=== PATIENT | female | born 1950 | race Caucasian/White ===

== ENCOUNTER → 2016-04-11 | Outpatient (REF) | payer MEDICARE | PROVIDERS: ATTEND Nurse Practitioner Family | DX: E03.9 Hypothyroidism, unspecified (principal); E78.2 Mixed hyperlipidemia; I10 Essential (primary) hypertension ==

== ENCOUNTER → 2016-04-12 | Outpatient (REF) | payer MEDICARE ==
[2016-04-12 10:30] LABS: ALBUMIN 3.7 GM/DL (3.2-5.2); ALBUMIN/GLOBULIN RATIO 1.23 (1.00-1.93); BILIRUBIN,TOTAL 0.5 MG/DL (0.2-1.0); CALCIUM LEVEL 8.3 MG/DL (8.8-10.2); CREATININE FOR GFR 1.12 MG/DL (0.55-1.02); GLOMERULAR FILTRATION RATE 51.7 (>45); POTASSIUM SERUM 4.1 MEQ/L (3.5-5.1); TOTAL PROTEIN 6.7 GM/DL (6.4-8.2)
== END ==
PROVIDERS: ATTEND Nurse Practitioner Family
DX: E03.9 Hypothyroidism, unspecified (principal); E78.2 Mixed hyperlipidemia; I10 Essential (primary) hypertension

== ENCOUNTER → 2017-11-16 | Outpatient (REF) | payer MEDICARE ==
[2017-11-16 18:27] LABS: APPEARANCE, URINE HAZY (CLEAR); BACTERIA, URINE AUTO 1+ (NEGATIVE); BILIRUBIN, URINE AUTO NEGATIVE (NEGATIVE); BLOOD, URINE BLOOD NEGATIVE (NEGATIVE); COLOR, URINE YELLOW (YELLOW); GLUCOSE, URINE (UA) AUTO NEGATIVE (NEGATIVE); KETONE, URINE AUTO NEGATIVE (NEGATIVE); LEUKOCYTE ESTERASE, URINE AUTO 2+ (NEGATIVE); MUCUS, URINE SMALL (NEGATIVE); NITRITE, URINE AUTO NEGATIVE (NEGATIVE); PROTEIN, URINE AUTO NEGATIVE (NEGATIVE); RBC, URINE AUTO 1 /HPF (0-3); SPECIFIC GRAVITY URINE AUTO 1.016 (1.002-1.035); SQUAMOUS EPITHELIAL CELL UR AU 2 /HPF (0-6); WBC, URINE AUTO 28 /HPF (0-3)
== END ==
LOC: M LAB REF 16:57
DX: N39.0 Urinary tract infection, site not specified (principal)
CPT/HCPCS: 81001

== ENCOUNTER 2018-01-31 07:00 | Outpatient (REF) | payer MEDICARE, MEDICAID ==
[2018-01-31 09:20] LABS: HEMOGLOBIN 13.9 g/dl (12.0-15.5); MEAN CORPUSCULAR HGB CONC 31.6 g/dl (32.0-36.5); MEAN CORPUSCULAR VOLUME 88.7 fl (80.0-96.0); PLATELET COUNT, AUTOMATED 189 10^3/uL (150-450); RED BLOOD COUNT 4.96 10^6/uL (4.00-5.40); RED CELL DISTRIBUTION WIDTH 15.7 % (11.5-14.5)
[2018-01-31 10:02] LABS: ALBUMIN 3.7 GM/DL (3.2-5.2); ALBUMIN/GLOBULIN RATIO 1.16 (1.00-1.93); ALKALINE PHOSPHATASE 88 U/L (45-117); ALT/SGPT 35 U/L (12-78); ANION GAP 8 MEQ/L (8-16); AST/SGOT 25 U/L (7-37); BILIRUBIN,TOTAL 0.7 MG/DL (0.2-1.0); BLOOD UREA NITROGEN 14 MG/DL (7-18); CALCIUM LEVEL 9.1 MG/DL (8.8-10.2); CARBON DIOXIDE LEVEL 30 MEQ/L (21-32); CHLORIDE LEVEL 103 MEQ/L (98-107); CREATININE FOR GFR 1.04 MG/DL (0.55-1.30); GLOMERULAR FILTRATION RATE 55.9 (>45); GLUCOSE, FASTING 100 MG/DL (70-100); POTASSIUM SERUM 3.6 MEQ/L (3.5-5.1); SODIUM LEVEL 141 MEQ/L (136-145); TOTAL PROTEIN 6.9 GM/DL (6.4-8.2)
[2018-01-31 11:38] LABS: TOTAL 25(OH) VITAMIN D 19.4 NG/ML (30.0-100.0)
== END 2018-02-04 ==
LOC: SKLAB6 02-04 07:00
DX: E55.9 Vitamin D deficiency, unspecified (principal); D64.9 Anemia, unspecified; I10 Essential (primary) hypertension; Z79.899 Other long term (current) drug therapy
CPT/HCPCS: 80053

== ENCOUNTER → 2018-02-11 | Outpatient (REF) | payer MEDICARE, MEDICAID | LOC: SKLAB6 06:49 | DX: E03.9 Hypothyroidism, unspecified (principal) | CPT/HCPCS: 84443 ==

== ENCOUNTER → 2018-04-29 | Outpatient (REF) | payer MEDICARE ==
[2018-04-30 01:21] LABS: CREATININE, URINE 77.6 MG/DL; MALB URINE SIEMENS < 5.0 MG/L; MAU/CREAT RATIO 6.4 MCG/MG (0.0-30.0)
== END ==
LOC: SKLAB6 23:30
PROVIDERS: ATTEND Internal Medicine
DX: R39.89 Other symptoms and signs involving the genitourinary system (principal)

== ENCOUNTER → 2018-05-02 | Outpatient (REF) | payer MEDICARE ==
[2018-05-02 08:48] LABS: HEMOGLOBIN A1c 6.3 %
== END ==
LOC: SKLAB6 07:00
PROVIDERS: ATTEND Internal Medicine
DX: E11.9 Type 2 diabetes mellitus without complications (principal); Z79.899 Other long term (current) drug therapy

== ENCOUNTER → 2018-06-13 | Outpatient (REF) | payer MEDICARE ==
--- NOTE | 2018-06-13 14:22 | REP ---
LEFT HIP, TWO VIEWS: HISTORY: Hip pain. The patient is status post left total hip replacement. There is no acute fracture or dislocation. The bony structure is osteopenic. IMPRESSION: The patient is status post left total hip replacement. Electronically Signed by Abran Fields MD 06/13/2018 02:23 P
== END ==
LOC: SKLAB6 11:30
PROVIDERS: ATTEND Internal Medicine
DX: M25.552 Pain in left hip (principal)

== ENCOUNTER → 2018-07-25 | Outpatient (REF) | payer MEDICARE ==
[2018-07-25 08:33] LABS: HEMATOCRIT 41.9 % (36.0-47.0); HEMOGLOBIN 13.1 g/dl (12.0-15.5); MEAN CORPUSCULAR HEMOGLOBIN 26.8 pg (27.0-33.0); MEAN CORPUSCULAR HGB CONC 31.3 g/dl (32.0-36.5); MEAN CORPUSCULAR VOLUME 85.9 fl (80.0-96.0); PLATELET COUNT, AUTOMATED 255 10^3/uL (150-450); RED BLOOD COUNT 4.88 10^6/uL (4.00-5.40); WHITE BLOOD COUNT 5.8 10^3/uL (4.0-10.0)
[2018-07-25 09:59] LABS: ALBUMIN 3.3 GM/DL (3.2-5.2); BILIRUBIN,TOTAL 0.4 MG/DL (0.2-1.0); CALCIUM LEVEL 8.7 MG/DL (8.8-10.2); CREATININE FOR GFR 0.99 MG/DL (0.55-1.30); POTASSIUM SERUM 3.6 MEQ/L (3.5-5.1); THYROID STIMULATING HORMONE 3.54 uIU/ML (0.358-3.740); TOTAL PROTEIN 6.6 GM/DL (6.4-8.2)
== END ==
LOC: SKLAB6 07:00
PROVIDERS: ATTEND Internal Medicine
DX: E03.9 Hypothyroidism, unspecified (principal)

== ENCOUNTER → 2019-01-30 | Outpatient (REF) | payer MEDICARE ==
[2019-01-30 09:10] LABS: HEMATOCRIT 45.3 % (36.0-47.0); HEMOGLOBIN 14.4 g/dl (12.0-15.5); MEAN CORPUSCULAR HEMOGLOBIN 29.4 pg (27.0-33.0); MEAN CORPUSCULAR HGB CONC 31.8 g/dl (32.0-36.5); MEAN CORPUSCULAR VOLUME 92.6 fl (80.0-96.0); PLATELET COUNT, AUTOMATED 201 10^3/uL (150-450); RED BLOOD COUNT 4.89 10^6/uL (4.00-5.40); WHITE BLOOD COUNT 4.8 10^3/uL (4.0-10.0)
[2019-01-30 09:46] LABS: ALBUMIN 3.7 GM/DL (3.2-5.2); ALT/SGPT 19 U/L (12-78); BILIRUBIN,TOTAL 0.7 MG/DL (0.2-1.0); BLOOD UREA NITROGEN 12 MG/DL (7-18); CALCIUM LEVEL 9.4 MG/DL (8.8-10.2); CARBON DIOXIDE LEVEL 30 MEQ/L (21-32); CHLORIDE LEVEL 106 MEQ/L (98-107); CREATININE FOR GFR 0.92 MG/DL (0.55-1.30); GLOMERULAR FILTRATION RATE > 60.0 (>39); GLUCOSE, FASTING 109 MG/DL (70-100); POTASSIUM SERUM 3.1 MEQ/L (3.5-5.1); SODIUM LEVEL 142 MEQ/L (136-145); TOTAL PROTEIN 7.5 GM/DL (6.4-8.2)
== END ==
LOC: SKLAB6 07:00
PROVIDERS: ATTEND Internal Medicine
DX: Z79.899 Other long term (current) drug therapy (principal)

== ENCOUNTER → 2019-02-06 | Outpatient (REF) | payer MEDICARE ==
[2019-02-06 11:00] LABS: BLOOD UREA NITROGEN 13 MG/DL (7-18); CARBON DIOXIDE LEVEL 25 MEQ/L (21-32); CHLORIDE LEVEL 106 MEQ/L (98-107); CREATININE FOR GFR 0.86 MG/DL (0.55-1.30); GLOMERULAR FILTRATION RATE > 60.0 (>39); GLUCOSE, FASTING 107 MG/DL (70-100); POTASSIUM SERUM 3.6 MEQ/L (3.5-5.1); SODIUM LEVEL 141 MEQ/L (136-145)
== END ==
LOC: SKLAB6 07:00
PROVIDERS: ATTEND Internal Medicine
DX: Z79.899 Other long term (current) drug therapy (principal)

== ENCOUNTER → 2019-02-20 | Outpatient (REF) | payer MEDICARE ==
[2019-02-20 12:33] LABS: BLOOD UREA NITROGEN 12 MG/DL (7-18); CALCIUM LEVEL 9.1 MG/DL (8.8-10.2); CARBON DIOXIDE LEVEL 26 MEQ/L (21-32); CHLORIDE LEVEL 106 MEQ/L (98-107); CREATININE FOR GFR 0.83 MG/DL (0.55-1.30); GLOMERULAR FILTRATION RATE > 60.0 (>39); GLUCOSE, FASTING 102 MG/DL (70-100); POTASSIUM SERUM 3.8 MEQ/L (3.5-5.1); SODIUM LEVEL 140 MEQ/L (136-145)
== END ==
LOC: SKLAB6 13:00
PROVIDERS: ATTEND Internal Medicine
DX: I10 Essential (primary) hypertension (principal)

== ENCOUNTER → 2019-03-07 | Outpatient (REF) | payer MEDICARE | LOC: SKLAB6 07:00 | PROVIDERS: ATTEND Internal Medicine | DX: E03.9 Hypothyroidism, unspecified (principal) ==

== ENCOUNTER → 2019-04-30 | Outpatient (REF) | payer MEDICARE ==
[2019-04-30 12:58] LABS: HEMATOCRIT 42.8 % (36.0-47.0); HEMOGLOBIN 13.9 g/dl (12.0-15.5); MEAN CORPUSCULAR HEMOGLOBIN 29.8 pg (27.0-33.0); MEAN CORPUSCULAR HGB CONC 32.5 g/dl (32.0-36.5); MEAN CORPUSCULAR VOLUME 91.6 fl (80.0-96.0); PLATELET COUNT, AUTOMATED 184 10^3/uL (150-450); RED BLOOD COUNT 4.67 10^6/uL (4.00-5.40); WHITE BLOOD COUNT 5.2 10^3/uL (4.0-10.0)
[2019-04-30 13:14] LABS: BLOOD UREA NITROGEN 14 MG/DL (7-18); CALCIUM LEVEL 9.2 MG/DL (8.8-10.2); CARBON DIOXIDE LEVEL 31 MEQ/L (21-32); CHLORIDE LEVEL 105 MEQ/L (98-107); CREATININE FOR GFR 0.84 MG/DL (0.55-1.30); GLOMERULAR FILTRATION RATE > 60.0 (>39); GLUCOSE, FASTING 135 MG/DL (70-100); POTASSIUM SERUM 3.8 MEQ/L (3.5-5.1); SODIUM LEVEL 142 MEQ/L (136-145)
== END ==
LOC: SKLAB6 10:00
PROVIDERS: ATTEND Internal Medicine
DX: Z79.899 Other long term (current) drug therapy (principal)

== ENCOUNTER → 2019-05-18 | Outpatient (REF) | payer MEDICARE ==
--- NOTE | 2019-05-18 13:45 | REP ---
Right lower extremity Duplex Doppler venous ultrasound: Real time compression and duplex Doppler interrogation of the right lower extremity deep venous system is performed. The right common femoral, superficial femoral and popliteal veins are fully compressible with transducer pressure and demonstrate normal spontaneous and phasic flow, without evidence of deep venous thrombosis. Impression: No evidence of deep venous thrombosis of the right lower extremity femoral popliteal venous system. Electronically Signed by Ramone Luciano MD 05/18/2019 01:36 P
== END ==
LOC: EDSTATUS 08:21 → M RAD 12:15
PROVIDERS: ATTEND Internal Medicine
DX: R60.0 Localized edema (principal)

== ENCOUNTER → 2019-06-30 | Outpatient (REF) | payer MEDICARE | LOC: SKLAB6 12:28 | PROVIDERS: ATTEND Internal Medicine | DX: J06.9 Acute upper respiratory infection, unspecified (principal) ==

== ENCOUNTER → 2019-07-31 | Outpatient (REF) | payer MEDICARE ==
[2019-07-31 09:13] LABS: HEMATOCRIT 38.4 % (36.0-47.0); HEMOGLOBIN 12.4 g/dl (12.0-15.5); MEAN CORPUSCULAR HEMOGLOBIN 29.7 pg (27.0-33.0); MEAN CORPUSCULAR HGB CONC 32.3 g/dl (32.0-36.5); MEAN CORPUSCULAR VOLUME 92.1 fl (80.0-96.0); PLATELET COUNT, AUTOMATED 129 10^3/uL (150-450); RED BLOOD COUNT 4.17 10^6/uL (4.00-5.40); WHITE BLOOD COUNT 3.7 10^3/uL (4.0-10.0)
[2019-07-31 09:47] LABS: ALBUMIN 2.8 GM/DL (3.2-5.2); ALT/SGPT 19 U/L (12-78); BILIRUBIN,TOTAL 0.6 MG/DL (0.2-1.0); BLOOD UREA NITROGEN 13 MG/DL (7-18); CALCIUM LEVEL 8.7 MG/DL (8.8-10.2); CARBON DIOXIDE LEVEL 33 MEQ/L (21-32); CHLORIDE LEVEL 106 MEQ/L (98-107); CREATININE FOR GFR 0.76 MG/DL (0.55-1.30); GLOMERULAR FILTRATION RATE > 60.0 (>39); GLUCOSE, FASTING 80 MG/DL (70-100); POTASSIUM SERUM 3.3 MEQ/L (3.5-5.1); SODIUM LEVEL 143 MEQ/L (136-145); THYROID STIMULATING HORMONE 0.971 uIU/ML (0.358-3.740); TOTAL PROTEIN 6.3 GM/DL (6.4-8.2)
== END ==
LOC: SKLAB6 07:00
PROVIDERS: ATTEND Internal Medicine
DX: G30.9 Alzheimer's disease, unspecified (principal); D55.9 Anemia due to enzyme disorder, unspecified; I10 Essential (primary) hypertension; E03.9 Hypothyroidism, unspecified

== ENCOUNTER 2019-08-29 18:15 | Emergency (ER) | payer MEDICARE ==
[~2019-08-29] VITALS: Ht 167.6 cm; Wt 59.1 kg
--- NOTE | 2019-08-29 19:43 | REP ---
Single view chest: 08/29/2019. Indication: Chest pain. Fall. Comparison: 09/09/2015. Findings: The lungs are clear. There is no pleural effusion or pneumothorax. Cardiac silhouette is not enlarged. Tortuous aorta is noted. Significant degenerative sequelae are present involving the thoracic spine and right greater than left glenohumeral joints. Impression: Clear lungs. Electronically Signed by Wyatt Arellano DO 08/29/2019 07:34 P
--- NOTE | 2019-08-29 19:49 | REP ---
Five views left hip and single view pelvis: 08/29/2019. Indication: Left hip pain following injury. Comparison: 06/13/2018. Findings: The patient is status post bilateral total hip arthroplasties. The hardware appears intact. There is no evidence of acute fracture. Diffuse osteopenia is noted. Impression: No acute fracture detected. Electronically Signed by Wyatt Arellano DO 08/29/2019 07:41 P
--- NOTE | 2019-08-29 19:56 | REPVR ---
PROCEDURE INFORMATION: Exam: CT Head Without Contrast Exam date and time: 08/29/2019 7:26 PM Age: 69 years old Clinical indication: Injury or trauma; Fall; Initial encounter; Blunt trauma (contusions or hematomas) TECHNIQUE: Imaging protocol: Computed tomography of the head without contrast. Axial and coronal reformatted images were created and reviewed. Radiation optimization: All CT scans at this facility use at least one of these dose optimization techniques: automated exposure control; mA and/or kV adjustment per patient size (includes targeted exams where dose is matched to clinical indication); or iterative reconstruction. COMPARISON: No relevant prior studies available. FINDINGS: Brain: Patchy areas of hypoattenuation in the periventricular and subcortical white matter, consistent with chronic small vessel ischemic disease. No CT evidence of acute intracranial hemorrhage or acute territorial infarction. No significant mass effect or midline shift. Basal cisterns patent. Ventricles: Prominence of the cortical sulci, cisterns and ventricular system, consistent with cerebral and cerebellar volume loss. Bones/joints: No acute osseous abnormality. Sinuses: Minimal ethmoid mucosal thickening. Mastoid air cells: Grossly unremarkable. Vasculature: Calcific atherosclerotic disease in the cavernous internal carotid arteries. Soft tissues: Grossly unremarkable. IMPRESSION: 1. No CT evidence of acute intracranial pathology. 2. Additional findings, as above. Electronically signed by: Alexsander Patterson On 08/29/2019 19:55:30 PM
--- NOTE | 2019-08-29 20:03 | REPVR ---
PROCEDURE INFORMATION: Exam: CT Cervical Spine Without Contrast Exam date and time: 08/29/2019 7:26 PM Age: 69 years old Clinical indication: Injury or trauma; Fall; Initial encounter; Blunt trauma TECHNIQUE: Imaging protocol: Computed tomography images of the cervical spine without contrast. Axial, coronal and sagittal reformatted images were created and reviewed. Radiation optimization: All CT scans at this facility use at least one of these dose optimization techniques: automated exposure control; mA and/or kV adjustment per patient size (includes targeted exams where dose is matched to clinical indication); or iterative reconstruction. COMPARISON: No relevant prior studies available. FINDINGS: Vertebrae: Osteopenia. Straightening of the normal cervical lordosis. Mild anterolisthesis of C3 on C4, C4 on C5, C6 on C7 and C7 on T1. Mild retrolisthesis of C5 on C6. Alignment otherwise anatomic. Mild dextroscoliosis. No CT evidence of acute fracture, dislocation or subluxation. Vertebral body heights maintained. Discs/Spinal canal/Neural foramina: Mild multilevel degenerative changes, characterized by disc space narrowing, osteophytosis and uncovertebral and facet joint hypertrophy. Mild multilevel spinal canal and neural foraminal narrowing. Soft tissues: Grossly unremarkable. Lungs: Grossly unremarkable. IMPRESSION: 1. No CT evidence of acute cervical spine traumatic injury. 2. Additional findings, as above. Electronically signed by: Alexsander Patterson On 08/29/2019 20:03:13 PM
[2019-08-29 20:50] VITALS: BP 128/65
--- NOTE | 2019-08-30 10:21 | REP ---
Two views left ankle: 08/29/2019. Indication: Left ankle trauma and pain. Findings: There is no acute fracture, subluxation or dislocation. Alignment is normal. No lytic or blastic lesions are present. Impression: No acute osseous injury of the left ankle. Electronically Signed by Wyatt Arellano DO 08/30/2019 10:13 A
== END 2019-08-29 21:35 | disposition home or self-care (01) ==
LOC: M ED 18:15
DX: S72.102A Unspecified trochanteric fracture of left femur, initial encounter for closed fracture (principal); W01.0XXA Fall on same level from slipping, tripping and stumbling without subsequent striking against object, initial encounter; Y92.128 Other place in nursing home as the place of occurrence of the external cause; Y93.01 Activity, walking, marching and hiking; Y99.9 Unspecified external cause status; F03.90 Unspecified dementia, unspecified severity, without behavioral disturbance, psychotic disturbance, mood disturbance, and anxiety; I10 Essential (primary) hypertension; K21.9 Gastro-esophageal reflux disease without esophagitis; E03.9 Hypothyroidism, unspecified; G47.33 Obstructive sleep apnea (adult) (pediatric); Z96.642 Presence of left artificial hip joint

== ENCOUNTER → 2020-01-29 | Outpatient (REF) | payer MEDICARE ==
[2020-01-29 08:41] LABS: HEMATOCRIT 42.3 % (36.0-47.0); HEMOGLOBIN 13.6 g/dl (12.0-15.5); MEAN CORPUSCULAR HEMOGLOBIN 30.4 pg (27.0-33.0); MEAN CORPUSCULAR HGB CONC 32.2 g/dl (32.0-36.5); MEAN CORPUSCULAR VOLUME 94.4 fl (80.0-96.0); PLATELET COUNT, AUTOMATED 199 10^3/uL (150-450); RED BLOOD COUNT 4.48 10^6/uL (4.00-5.40); WHITE BLOOD COUNT 3.8 10^3/uL (4.0-10.0)
[2020-01-29 08:53] LABS: ALBUMIN 3.4 GM/DL (3.2-5.2); ALT/SGPT 22 U/L (12-78); BILIRUBIN,TOTAL 0.6 MG/DL (0.2-1.0); BLOOD UREA NITROGEN 17 MG/DL (7-18); CALCIUM LEVEL 8.9 MG/DL (8.8-10.2); CARBON DIOXIDE LEVEL 33 MEQ/L (21-32); CHLORIDE LEVEL 105 MEQ/L (98-107); CREATININE FOR GFR 0.71 MG/DL (0.55-1.30); GLOMERULAR FILTRATION RATE > 60.0 (>39); GLUCOSE, FASTING 74 MG/DL (70-100); POTASSIUM SERUM 3.7 MEQ/L (3.5-5.1); SODIUM LEVEL 142 MEQ/L (136-145); TOTAL PROTEIN 6.3 GM/DL (6.4-8.2)
== END ==
LOC: SKLAB6 07:00
PROVIDERS: ATTEND Internal Medicine
DX: E03.9 Hypothyroidism, unspecified (principal); I10 Essential (primary) hypertension; F03.90 Unspecified dementia, unspecified severity, without behavioral disturbance, psychotic disturbance, mood disturbance, and anxiety

== ENCOUNTER → 2020-02-04 | Outpatient (REF) | payer MEDICARE | LOC: SKLAB6 02-03 13:26 → EDSTATUS 03-11 12:53 | PROVIDERS: ATTEND Internal Medicine | DX: Z20.828 Contact with and (suspected) exposure to other viral communicable diseases (principal) ==

== ENCOUNTER → 2020-02-11 | Outpatient (REF) | payer MEDICARE | LOC: SKLAB6 08:00 | PROVIDERS: ATTEND Internal Medicine | DX: Z20.828 Contact with and (suspected) exposure to other viral communicable diseases (principal) ==

== ENCOUNTER → 2020-02-18 | Outpatient (REF) | payer MEDICARE ==
[2020-02-18 16:17] LABS: INFLUENZA A AMPLIFICATION NEGATIVE (NEGATIVE); INFLUENZA B AMPLIFICATION NEGATIVE (NEGATIVE)
== END ==
LOC: SKLAB6 08:00
PROVIDERS: ATTEND Internal Medicine
DX: Z20.828 Contact with and (suspected) exposure to other viral communicable diseases (principal)
CPT/HCPCS: 87502; U0003

== ENCOUNTER → 2020-02-25 | Outpatient (REF) | payer MEDICARE | LOC: SKLAB6 10:00 | PROVIDERS: ATTEND Internal Medicine | DX: Z20.828 Contact with and (suspected) exposure to other viral communicable diseases (principal) ==

== ENCOUNTER → 2020-03-03 | Outpatient (REF) | payer MEDICARE ==
[2020-03-03 11:37] LABS: INFLUENZA A AMPLIFICATION NEGATIVE (NEGATIVE); INFLUENZA B AMPLIFICATION NEGATIVE (NEGATIVE)
== END ==
LOC: SKLAB6 12:35
PROVIDERS: ATTEND Internal Medicine
DX: Z20.828 Contact with and (suspected) exposure to other viral communicable diseases (principal)
CPT/HCPCS: 87631; U0003

== ENCOUNTER → 2020-03-10 | Outpatient (REF) | payer MEDICARE | LOC: SKLAB6 09:00 | PROVIDERS: ATTEND Internal Medicine | DX: Z20.828 Contact with and (suspected) exposure to other viral communicable diseases (principal) ==

== ENCOUNTER → 2020-03-17 | Outpatient (REF) | payer MEDICARE | LOC: SKLAB6 10:00 | PROVIDERS: ATTEND Internal Medicine | DX: Z20.828 Contact with and (suspected) exposure to other viral communicable diseases (principal) ==

== ENCOUNTER → 2020-03-24 | Outpatient (REF) | payer MEDICARE | LOC: SKLAB6 10:00 | PROVIDERS: ATTEND Internal Medicine | DX: Z11.52 Encounter for screening for COVID-19 (principal) ==

== ENCOUNTER → 2020-03-31 | Outpatient (REF) | payer MEDICARE | LOC: SKLAB6 10:00 | PROVIDERS: ATTEND Internal Medicine | DX: Z20.822 Contact with and (suspected) exposure to COVID-19 (principal) ==

== ENCOUNTER → 2020-04-05 | Outpatient (REF) | payer MEDICARE ==
[2020-04-05 11:01] LABS: BLOOD UREA NITROGEN 16 MG/DL (7-18); CALCIUM LEVEL 9.4 MG/DL (8.8-10.2); CARBON DIOXIDE LEVEL 33 MEQ/L (21-32); CHLORIDE LEVEL 102 MEQ/L (98-107); CREATININE FOR GFR 0.83 MG/DL (0.55-1.30); GLOMERULAR FILTRATION RATE > 60.0 (>39); GLUCOSE, FASTING 73 MG/DL (70-100); POTASSIUM SERUM 2.9 MEQ/L (3.5-5.1); SODIUM LEVEL 140 MEQ/L (136-145)
== END ==
LOC: SKLAB6 09:00
PROVIDERS: ATTEND Internal Medicine
DX: R60.9 Edema, unspecified (principal)

== ENCOUNTER → 2020-04-06 | Outpatient (REF) | payer MEDICARE ==
[2020-04-06 10:48] LABS: POTASSIUM SERUM 4.2 MEQ/L (3.5-5.1)
== END ==
LOC: SKLAB6 07:00
PROVIDERS: ATTEND Internal Medicine
DX: E87.6 Hypokalemia (principal)

== ENCOUNTER → 2020-04-07 | Outpatient (REF) | payer MEDICARE | LOC: SKLAB6 09:00 | PROVIDERS: ATTEND Internal Medicine | DX: Z20.822 Contact with and (suspected) exposure to COVID-19 (principal) ==

== ENCOUNTER → 2020-04-14 | Outpatient (REF) | payer MEDICARE ==
[2020-04-14 13:17] LABS: INFLUENZA A AMPLIFICATION NEGATIVE (NEGATIVE); INFLUENZA B AMPLIFICATION NEGATIVE (NEGATIVE)
== END ==
LOC: SKLAB6 08:00
PROVIDERS: ATTEND Internal Medicine
DX: Z20.822 Contact with and (suspected) exposure to COVID-19 (principal)
CPT/HCPCS: 87502; U0003

== ENCOUNTER → 2020-04-21 | Outpatient (REF) | payer MEDICARE | LOC: SKLAB6 10:00 | PROVIDERS: ATTEND Internal Medicine | DX: Z20.822 Contact with and (suspected) exposure to COVID-19 (principal) ==

== ENCOUNTER → 2020-04-28 | Outpatient (REF) | payer MEDICARE | LOC: SKLAB6 09:00 | PROVIDERS: ATTEND Internal Medicine | DX: Z20.822 Contact with and (suspected) exposure to COVID-19 (principal) ==

== ENCOUNTER → 2020-05-05 | Outpatient (REF) | payer MEDICARE | LOC: SKLAB6 10:00 | PROVIDERS: ATTEND Internal Medicine | DX: Z11.52 Encounter for screening for COVID-19 (principal) ==

== ENCOUNTER → 2020-05-12 | Outpatient (REF) | payer MEDICARE | LOC: SKLAB6 10:00 | PROVIDERS: ATTEND Internal Medicine | DX: Z20.822 Contact with and (suspected) exposure to COVID-19 (principal) ==

== ENCOUNTER → 2020-05-26 | Outpatient (REF) | payer MEDICARE | LOC: SKLAB6 12:11 | PROVIDERS: ATTEND Internal Medicine | DX: Z20.822 Contact with and (suspected) exposure to COVID-19 (principal) ==

== ENCOUNTER → 2020-06-02 | Outpatient (REF) | payer MEDICARE | LOC: SKLAB6 09:00 | PROVIDERS: ATTEND Internal Medicine | DX: Z20.822 Contact with and (suspected) exposure to COVID-19 (principal) ==

== ENCOUNTER → 2020-06-18 | Outpatient (REF) | payer MEDICARE | LOC: SKLAB6 10:00 | PROVIDERS: ATTEND Internal Medicine | DX: Z20.822 Contact with and (suspected) exposure to COVID-19 (principal) ==

== ENCOUNTER → 2020-07-29 | Outpatient (REF) | payer MEDICARE ==
[2020-07-29 08:38] LABS: HEMATOCRIT 40.5 % (36.0-47.0); HEMOGLOBIN 13.1 g/dl (12.0-15.5); MEAN CORPUSCULAR HEMOGLOBIN 30.9 pg (27.0-33.0); MEAN CORPUSCULAR HGB CONC 32.3 g/dl (32.0-36.5); MEAN CORPUSCULAR VOLUME 95.5 fl (80.0-96.0); PLATELET COUNT, AUTOMATED 192 10^3/uL (150-450); RED BLOOD COUNT 4.24 10^6/uL (4.00-5.40); WHITE BLOOD COUNT 3.7 10^3/uL (4.0-10.0)
[2020-07-29 09:07] LABS: ALBUMIN 3.3 GM/DL (3.2-5.2); ALT/SGPT 19 U/L (12-78); BILIRUBIN,TOTAL 0.6 MG/DL (0.2-1.0); BLOOD UREA NITROGEN 23 MG/DL (7-18); CALCIUM LEVEL 8.7 MG/DL (8.8-10.2); CARBON DIOXIDE LEVEL 31 MEQ/L (21-32); CHLORIDE LEVEL 106 MEQ/L (98-107); CREATININE FOR GFR 0.73 MG/DL (0.55-1.30); GLOMERULAR FILTRATION RATE > 60.0 (>39); GLUCOSE, FASTING 71 MG/DL (70-100); POTASSIUM SERUM 3.8 MEQ/L (3.5-5.1); SODIUM LEVEL 140 MEQ/L (136-145); TOTAL PROTEIN 6.4 GM/DL (6.4-8.2)
== END ==
LOC: SKLAB6 07:00
PROVIDERS: ATTEND Internal Medicine
DX: E03.9 Hypothyroidism, unspecified (principal); I10 Essential (primary) hypertension; F03.90 Unspecified dementia, unspecified severity, without behavioral disturbance, psychotic disturbance, mood disturbance, and anxiety

== ENCOUNTER 2020-08-11 16:41 | Emergency (ER) | payer MEDICARE ==
[~2020-08-11] VITALS: Ht 175.3 cm; Wt 67.7 kg
[2020-08-11] MEDS ORDERED: MORPHINE 2 MG/ML 1ML VIAL (J2270) IV ONE ×2 (17:25→19:40)
[2020-08-11 17:39] LABS: BASO % 0.5 % (0.0-1.0); EOS # 0.1 10^3/uL (0.0-0.5); EOS % 1.2 % (0.0-3.0); HEMATOCRIT 39.5 % (36.0-47.0); LYMPH # 1.5 10^3/uL (1.5-5.0); LYMPH % 25.5 % (24.0-44.0); MEAN CORPUSCULAR HEMOGLOBIN 31.2 pg (27.0-33.0); MEAN CORPUSCULAR HGB CONC 32.9 g/dl (32.0-36.5); MEAN CORPUSCULAR VOLUME 94.7 fl (80.0-96.0); MONO # 0.4 10^3/uL (0.0-0.8); MONO % 6.9 % (2.0-8.0); NEUTROPHILS # 3.9 10^3/uL (1.5-8.5); NEUTROPHILS % 65.4 % (36.0-66.0); PLATELET COUNT, AUTOMATED 220 10^3/uL (150-450); RED BLOOD COUNT 4.17 10^6/uL (4.00-5.40)
[2020-08-11 18:08] LABS: ALBUMIN 3.4 GM/DL (3.2-5.2); ALT/SGPT 20 U/L (12-78); BILIRUBIN,TOTAL 0.4 MG/DL (0.2-1.0); BLOOD UREA NITROGEN 22 MG/DL (7-18); CALCIUM LEVEL 8.8 MG/DL (8.8-10.2); CARBON DIOXIDE LEVEL 30 MEQ/L (21-32); CHLORIDE LEVEL 104 MEQ/L (98-107); CREATININE FOR GFR 0.82 MG/DL (0.55-1.30); GLOMERULAR FILTRATION RATE > 60.0 (>39); GLUCOSE, FASTING 98 MG/DL (70-100); POTASSIUM SERUM 3.8 MEQ/L (3.5-5.1); SODIUM LEVEL 140 MEQ/L (136-145); TOTAL PROTEIN 6.5 GM/DL (6.4-8.2)
--- NOTE | 2020-08-11 18:14 | REP ---
INDICATION: fall; pre-op. COMPARISON: Comparison chest x-ray August 29, 2019.. TECHNIQUE: Portable supine AP chest x-ray peer FINDINGS: Patient is rotated to the right for the current exposure and the mandible overlies the lung apices particularly on the right. There is a large air and fluid containing hiatal hernia overlying the heart. No infiltrate is seen. The pleural angles are sharp. No infiltrate is seen. The thoracic aorta is somewhat tortuous. No acute bony abnormality. IMPRESSION: Large hiatal hernia. No infiltrate or other acute finding. <Electronically signed by Carl Quiroz > 08/11/20 [id number]
[2020-08-11 18:29] LABS: RSV AMPLIFICATION NEGATIVE (NEGATIVE)
[2020-08-11] MEDS ORDERED: MILKSUS3 PO (19:10)
[2020-08-11] MEDS ORDERED: NUED20CA PO (19:10)
[2020-08-11] MEDS ORDERED: DULC10SU2 PR (19:10)
[2020-08-11] MEDS ORDERED: ZONI25CA13 PO (19:10)
[2020-08-11] MEDS ORDERED: LEXA1TAB2 PO (19:10)
[2020-08-11] MEDS ORDERED: MIRA3350 PO (19:10)
[2020-08-11] MEDS ORDERED: AYR0.65S NARES (19:10)
[2020-08-11] MEDS ORDERED: HYDR12CA PO (19:10)
[2020-08-11] MEDS ORDERED: ACET1TAB55 PO ×2 (19:10)
[2020-08-11] MEDS ORDERED: LORA-674 PO (19:10)
[2020-08-11] MEDS ORDERED: LEVO75TA34 PO (19:10)
[2020-08-11] MEDS ORDERED: ENSU1LIQ36 PO (19:10)
[2020-08-11] MEDS ORDERED: POTA1TAB14 PO (19:10)
[2020-08-11] MEDS ORDERED: NS 1,000 ML IV SCH (20:25)
[2020-08-11 22:00] VITALS: BP 141/87
== END 2020-08-11 22:31 | disposition short-term general hospital (02) ==
LOC: M ED 16:41
DX: S72.401A Unspecified fracture of lower end of right femur, initial encounter for closed fracture (principal); W19.XXXA Unspecified fall, initial encounter; Y92.129 Unspecified place in nursing home as the place of occurrence of the external cause; Y93.89 Activity, other specified; Y99.9 Unspecified external cause status; M19.011 Primary osteoarthritis, right shoulder; M85.88 Other specified disorders of bone density and structure, other site; E03.9 Hypothyroidism, unspecified; F03.90 Unspecified dementia, unspecified severity, without behavioral disturbance, psychotic disturbance, mood disturbance, and anxiety; Z79.890 Hormone replacement therapy; Z79.899 Other long term (current) drug therapy
CPT/HCPCS: 29505; 71045; 73030; 73502; 73564; 80053; 85025; 87631; 96374; 96375; 99285; J2270

== ENCOUNTER → 2020-08-11 | Outpatient (CLI) | payer MEDICARE ==
[~2020-08-11] MED LIST: ACET1TAB55 PO; AYR0.65S NARES; DULC10SU2 PR; ENSU1LIQ36 PO; HYDR12CA PO; LEVO75TA34 PO; LEXA1TAB2 PO; LORA-674 PO; MILKSUS3 PO; MIRA3350 PO; NUED20CA PO; POTA1TAB14 PO; ZONI25CA13 PO
--- NOTE | 2020-08-11 16:41 | REP ---
INDICATION: HIP, KNEE, AND SHOULDER PAIN COMPARISON: None. TECHNIQUE: Internal and external rotation views of the right shoulder. FINDINGS: Advanced osteopenia and degenerative changes are appreciated. No evidence for acute fracture or dislocation. IMPRESSION: Advanced osteoarthritic degenerative changes. No acute fracture or dislocation identified. <Electronically signed by Adolfo Cornell > 08/11/20 [id number]
--- NOTE | 2020-08-11 16:42 | REP ---
INDICATION: HIP, KNEE, AND SHOULDER PAIN COMPARISON: 08/29/2019 TECHNIQUE: Single neutral view of the right hip FINDINGS: Right hip replacement appears stable. Osseous structures demonstrate osteopenia and degenerative changes. No obvious acute fracture or dislocation identified. IMPRESSION: No obvious acute fracture or dislocation. <Electronically signed by Adolfo Cornell > 08/11/20 [id number]
--- NOTE | 2020-08-11 16:43 | REP ---
INDICATION: HIP, KNEE, AND SHOULDER PAIN COMPARISON: None. TECHNIQUE: Limited AP and lateral views of the right knee FINDINGS: There is a comminuted angulated fracture through the distal femoral metaphysis with surrounding soft tissue swelling. Underlying osteopenia and degenerative changes noted. IMPRESSION: Acute comminuted posterior angulated fracture of the distal femoral metaphysis. <Electronically signed by Adolfo Cornell > 08/11/20 [id number]
== END ==
LOC: M RAD 15:35
PROVIDERS: ATTEND Internal Medicine
DX: S72.401A Unspecified fracture of lower end of right femur, initial encounter for closed fracture (principal); M19.011 Primary osteoarthritis, right shoulder; M85.88 Other specified disorders of bone density and structure, other site; W19.XXXA Unspecified fall, initial encounter; Y92.129 Unspecified place in nursing home as the place of occurrence of the external cause; Y99.9 Unspecified external cause status

== ENCOUNTER → 2020-08-11 | Outpatient (REF) | payer MEDICARE | LOC: SKLAB6 15:51 | PROVIDERS: ATTEND Internal Medicine | DX: Z53.8 Procedure and treatment not carried out for other reasons (principal) ==

== ENCOUNTER → 2020-09-17 | Outpatient (CLI) | payer MEDICARE | LOC: M RAD 14:12 | PROVIDERS: ATTEND Internal Medicine | DX: Z53.9 Procedure and treatment not carried out, unspecified reason (principal); S42.401A Unspecified fracture of lower end of right humerus, initial encounter for closed fracture; X58.XXXA Exposure to other specified factors, initial encounter; Y92.9 Unspecified place or not applicable ==

== ENCOUNTER → 2020-09-17 | Outpatient (REF) | payer MEDICARE ==
--- NOTE | 2020-09-17 15:27 | REP ---
INDICATION: NEEDED BEFORE oRTHO APPOINTMENT, RECHECKING BREAK COMPARISON: 08/11/2020 TECHNIQUE: Five views FINDINGS: The previously described comminuted distal femoral fracture has been openly reduced and internally fixed with an internal fixation plate and multiple fixing cortical and cancellous screws. The alignment is near anatomical. There is advanced tricompartmental marginal osteophytosis and tricompartmental narrowing with subchondral sclerosis. There is no evidence of an acute fracture. There is no obvious evidence of healing. IMPRESSION: As above. <Electronically signed by Catalino Frias > 09/17/20 [id number]
== END ==
LOC: SKLAB6 13:30
PROVIDERS: ATTEND Internal Medicine
DX: S72.401D Unspecified fracture of lower end of right femur, subsequent encounter for closed fracture with routine healing (principal)

== ENCOUNTER → 2021-01-06 | Outpatient (REF) | payer MEDICARE | LOC: SKLAB6 09:20 | PROVIDERS: ATTEND Internal Medicine | DX: Z20.822 Contact with and (suspected) exposure to COVID-19 (principal) ==

== ENCOUNTER → 2021-01-10 | Outpatient (REF) | payer MEDICARE | LOC: SKLAB6 06:21 | PROVIDERS: ATTEND Internal Medicine | DX: Z20.822 Contact with and (suspected) exposure to COVID-19 (principal) ==

== ENCOUNTER → 2021-01-13 | Outpatient (REF) | payer MEDICARE | LOC: SKLAB6 06:37 | PROVIDERS: ATTEND Internal Medicine | DX: Z20.822 Contact with and (suspected) exposure to COVID-19 (principal) ==

== ENCOUNTER → 2021-01-17 | Outpatient (REF) | payer MEDICARE | LOC: SKLAB6 05:52 | PROVIDERS: ATTEND Internal Medicine | DX: Z20.822 Contact with and (suspected) exposure to COVID-19 (principal) ==

== ENCOUNTER → 2021-01-18 | Outpatient (REF) | payer MEDICARE ==
[2021-01-18 13:51] LABS: HEMATOCRIT 38.9 % (36.0-47.0); HEMOGLOBIN 12.5 g/dl (12.0-15.5); MEAN CORPUSCULAR HEMOGLOBIN 30.2 pg (27.0-33.0); MEAN CORPUSCULAR HGB CONC 32.1 g/dl (32.0-36.5); PLATELET COUNT, AUTOMATED 187 10^3/uL (150-450); RED BLOOD COUNT 4.14 10^6/uL (4.00-5.40); WHITE BLOOD COUNT 3.4 10^3/uL (4.0-10.0)
[2021-01-18 14:19] LABS: BLOOD UREA NITROGEN 16 MG/DL (7-18); CALCIUM LEVEL 8.9 MG/DL (8.8-10.2); CARBON DIOXIDE LEVEL 31 MEQ/L (21-32); CHLORIDE LEVEL 108 MEQ/L (98-107); CREATININE FOR GFR 0.68 MG/DL (0.55-1.30); GLOMERULAR FILTRATION RATE > 60.0 (>39); GLUCOSE, FASTING 236 MG/DL (70-100); POTASSIUM SERUM 3.2 MEQ/L (3.5-5.1); SODIUM LEVEL 143 MEQ/L (136-145)
== END ==
LOC: SKLAB6 07:14
PROVIDERS: ATTEND Internal Medicine
DX: U07.1 COVID-19 (principal); Z79.899 Other long term (current) drug therapy

== ENCOUNTER → 2021-01-19 | Outpatient (REF) | payer MEDICARE ==
[2021-01-19 09:57] LABS: HEMATOCRIT 39.9 % (36.0-47.0); HEMOGLOBIN 12.6 g/dl (12.0-15.5); MEAN CORPUSCULAR HEMOGLOBIN 29.7 pg (27.0-33.0); MEAN CORPUSCULAR HGB CONC 31.6 g/dl (32.0-36.5); MEAN CORPUSCULAR VOLUME 94.1 fl (80.0-96.0); PLATELET COUNT, AUTOMATED 170 10^3/uL (150-450); RED BLOOD COUNT 4.24 10^6/uL (4.00-5.40)
[2021-01-19 10:33] LABS: ALT/SGPT 21 U/L (12-78); BILIRUBIN,TOTAL 0.4 MG/DL (0.2-1.0); BLOOD UREA NITROGEN 15 MG/DL (7-18); CALCIUM LEVEL 8.9 MG/DL (8.8-10.2); CARBON DIOXIDE LEVEL 33 MEQ/L (21-32); CHLORIDE LEVEL 107 MEQ/L (98-107); CREATININE FOR GFR 0.59 MG/DL (0.55-1.30); GLOMERULAR FILTRATION RATE > 60.0 (>39); GLUCOSE, FASTING 84 MG/DL (70-100); POTASSIUM SERUM 3.5 MEQ/L (3.5-5.1); SODIUM LEVEL 144 MEQ/L (136-145); TOTAL PROTEIN 6.5 GM/DL (6.4-8.2)
== END ==
LOC: SKLAB2 07:06
PROVIDERS: ATTEND Internal Medicine
DX: U07.1 COVID-19 (principal); Z79.899 Other long term (current) drug therapy

== ENCOUNTER → 2021-01-21 | Outpatient (REF) | payer MEDICARE ==
[2021-01-21 10:12] LABS: HEMATOCRIT 40.8 % (36.0-47.0); HEMOGLOBIN 12.9 g/dl (12.0-15.5); MEAN CORPUSCULAR HEMOGLOBIN 29.6 pg (27.0-33.0); MEAN CORPUSCULAR HGB CONC 31.6 g/dl (32.0-36.5); MEAN CORPUSCULAR VOLUME 93.6 fl (80.0-96.0); PLATELET COUNT, AUTOMATED 196 10^3/uL (150-450); RED BLOOD COUNT 4.36 10^6/uL (4.00-5.40); WHITE BLOOD COUNT 4.5 10^3/uL (4.0-10.0)
[2021-01-21 10:46] LABS: BLOOD UREA NITROGEN 15 MG/DL (7-18); CARBON DIOXIDE LEVEL 25 MEQ/L (21-32); CHLORIDE LEVEL 103 MEQ/L (98-107); GLOMERULAR FILTRATION RATE > 60.0 (>39); GLUCOSE, FASTING 225 MG/DL (70-100); POTASSIUM SERUM 3.3 MEQ/L (3.5-5.1); SODIUM LEVEL 138 MEQ/L (136-145)
== END ==
LOC: SKLAB2 07:00
PROVIDERS: ATTEND Internal Medicine
DX: U07.1 COVID-19 (principal); Z79.899 Other long term (current) drug therapy

== ENCOUNTER → 2021-01-23 | Outpatient (REF) | payer MEDICARE | LOC: SKLAB6 07:00 | PROVIDERS: ATTEND Internal Medicine | DX: E87.6 Hypokalemia (principal); Z53.9 Procedure and treatment not carried out, unspecified reason ==

== ENCOUNTER → 2021-01-24 | Outpatient (REF) | payer MEDICARE | LOC: SKLAB2 11:18 | PROVIDERS: ATTEND Internal Medicine | DX: U07.1 COVID-19 (principal); Z53.9 Procedure and treatment not carried out, unspecified reason ==

== ENCOUNTER → 2021-01-26 | Outpatient (REF) | payer MEDICARE ==
[2021-01-26 08:53] LABS: HEMATOCRIT 41.2 % (36.0-47.0); HEMOGLOBIN 13.3 g/dl (12.0-15.5); MEAN CORPUSCULAR HEMOGLOBIN 29.8 pg (27.0-33.0); MEAN CORPUSCULAR HGB CONC 32.3 g/dl (32.0-36.5); MEAN CORPUSCULAR VOLUME 92.4 fl (80.0-96.0); PLATELET COUNT, AUTOMATED 250 10^3/uL (150-450); RED BLOOD COUNT 4.46 10^6/uL (4.00-5.40); WHITE BLOOD COUNT 5.9 10^3/uL (4.0-10.0)
[2021-01-26 09:13] LABS: BLOOD UREA NITROGEN 13 MG/DL (7-18); CALCIUM LEVEL 9.1 MG/DL (8.8-10.2); CARBON DIOXIDE LEVEL 33 MEQ/L (21-32); CHLORIDE LEVEL 103 MEQ/L (98-107); CREATININE FOR GFR 0.66 MG/DL (0.55-1.30); GLOMERULAR FILTRATION RATE > 60.0 (>39); GLUCOSE, FASTING 80 MG/DL (70-100); POTASSIUM SERUM 3.5 MEQ/L (3.5-5.1); SODIUM LEVEL 140 MEQ/L (136-145)
== END ==
LOC: SKLAB2 08:38
PROVIDERS: ATTEND Internal Medicine
DX: U07.1 COVID-19 (principal); Z79.899 Other long term (current) drug therapy

== ENCOUNTER → 2021-01-28 | Outpatient (REF) | payer MEDICARE ==
[2021-01-28 12:59] LABS: ALBUMIN 2.9 GM/DL (3.2-5.2); ALT/SGPT 21 U/L (12-78); BILIRUBIN,TOTAL 0.4 MG/DL (0.2-1.0); BLOOD UREA NITROGEN 15 MG/DL (7-18); CALCIUM LEVEL 9.1 MG/DL (8.8-10.2); CARBON DIOXIDE LEVEL 34 MEQ/L (21-32); CHLORIDE LEVEL 103 MEQ/L (98-107); CREATININE FOR GFR 0.67 MG/DL (0.55-1.30); GLOMERULAR FILTRATION RATE > 60.0 (>39); GLUCOSE, FASTING 81 MG/DL (70-100); POTASSIUM SERUM 3.5 MEQ/L (3.5-5.1); SODIUM LEVEL 141 MEQ/L (136-145); TOTAL PROTEIN 6.6 GM/DL (6.4-8.2)
[2021-01-28 15:45] LABS: HEMATOCRIT 42.7 % (36.0-47.0); HEMOGLOBIN 13.7 g/dl (12.0-15.5); MEAN CORPUSCULAR HEMOGLOBIN 29.9 pg (27.0-33.0); MEAN CORPUSCULAR HGB CONC 32.1 g/dl (32.0-36.5); MEAN CORPUSCULAR VOLUME 93.2 fl (80.0-96.0); PLATELET COUNT, AUTOMATED 285 10^3/uL (150-450); RED BLOOD COUNT 4.58 10^6/uL (4.00-5.40); WHITE BLOOD COUNT 5.8 10^3/uL (4.0-10.0)
== END ==
LOC: SKLAB6 07:00
PROVIDERS: ATTEND Internal Medicine
DX: U07.1 COVID-19 (principal); Z79.899 Other long term (current) drug therapy

== ENCOUNTER → 2021-10-20 | Outpatient (REF) | payer MEDICARE ==
[2021-10-20 10:20] LABS: HEMATOCRIT 43.4 % (36.0-47.0); HEMOGLOBIN 14.1 g/dl (12.0-15.5); MEAN CORPUSCULAR HEMOGLOBIN 30.1 pg (27.0-33.0); MEAN CORPUSCULAR HGB CONC 32.5 g/dl (32.0-36.5); MEAN CORPUSCULAR VOLUME 92.7 fl (80.0-96.0); PLATELET COUNT, AUTOMATED 204 10^3/uL (150-450); RED BLOOD COUNT 4.68 10^6/uL (4.00-5.40); WHITE BLOOD COUNT 5.3 10^3/uL (4.0-10.0)
[2021-10-20 11:46] LABS: BLOOD UREA NITROGEN 10 MG/DL (7-18); CARBON DIOXIDE LEVEL 28 MEQ/L (21-32); CHLORIDE LEVEL 107 MEQ/L (98-107); CREATININE FOR GFR 0.48 MG/DL (0.55-1.30); GLOMERULAR FILTRATION RATE > 60.0 (>39); GLUCOSE, FASTING 75 MG/DL (70-100); POTASSIUM SERUM 3.7 MEQ/L (3.5-5.1); SODIUM LEVEL 141 MEQ/L (136-145)
== END ==
LOC: SKLAB6 07:00
PROVIDERS: ATTEND Nurse Practitioner Adult Health
DX: E03.9 Hypothyroidism, unspecified (principal); F03.90 Unspecified dementia, unspecified severity, without behavioral disturbance, psychotic disturbance, mood disturbance, and anxiety

== ENCOUNTER → 2021-10-27 | Outpatient (REF) | payer MEDICARE ==
[2021-10-27 13:41] LABS: HEMATOCRIT 43.1 % (36.0-47.0); HEMOGLOBIN 13.8 g/dl (12.0-15.5); MEAN CORPUSCULAR HEMOGLOBIN 30.3 pg (27.0-33.0); MEAN CORPUSCULAR VOLUME 94.7 fl (80.0-96.0); PLATELET COUNT, AUTOMATED 207 10^3/uL (150-450); RED BLOOD COUNT 4.55 10^6/uL (4.00-5.40); WHITE BLOOD COUNT 5.2 10^3/uL (4.0-10.0)
[2021-10-27 18:24] LABS: ALT/SGPT 17 U/L (12-78); BILIRUBIN,TOTAL 0.4 MG/DL (0.2-1.0); BLOOD UREA NITROGEN 11 MG/DL (7-18); CALCIUM LEVEL 8.8 MG/DL (8.8-10.2); CARBON DIOXIDE LEVEL 25 MEQ/L (21-32); CHLORIDE LEVEL 103 MEQ/L (98-107); CREATININE FOR GFR 0.63 MG/DL (0.55-1.30); GLOMERULAR FILTRATION RATE > 60.0 (>39); GLUCOSE, FASTING 222 MG/DL (70-100); POTASSIUM SERUM 3.4 MEQ/L (3.5-5.1); SODIUM LEVEL 138 MEQ/L (136-145)
== END ==
LOC: SKLAB6 08:00
PROVIDERS: ATTEND Internal Medicine
DX: F03.90 Unspecified dementia, unspecified severity, without behavioral disturbance, psychotic disturbance, mood disturbance, and anxiety (principal)